=== PATIENT | male | born 2000 | race Caucasian/White ===

== ENCOUNTER 2024-07-17 13:49 | Emergency (ER) | payer MEDICAID, SELFPAY ==
--- NOTE | 2024-07-17 13:50 | XR_ITS ---
Examination: PA lateral chest 2 views TECHNIQUE: Upright PA lateral chest 2 views Exam date and time: July 17, 2024 1358 hours Comparison March 18, 2023 FINDINGS: Coughing this week, portable muscles in the lower back FINDINGS: Normal heart size Lungs are clear. The osseous structures are intact IMPRESSION: No active disease
[2024-07-17 13:57] VITALS: BP 123/81; PULSE 80; RESP 16; TEMP 36.9; O2SAT 98; BMI 26.2
[2024-07-17] MEDS: IBUPROFEN TAB 400 MG TABLET 800 MG PO (14:12)
[2024-07-17] MEDS: DIAZEPAM 5 MG TABLET 10 MG PO (14:12)
--- NOTE | 2024-07-17 15:04 | PD.EDURI ---
Upper Respiratory Inf. RME/HPI General Chief Complaint: Flu Like Symptoms Stated Complaint: COUGHING, BACK PAIN Time Seen by Provider: 07/17/24 13:50 Arrival date/time: 07/17/24 13:49 24-year-old male presents emergency department today stating he was smoking and he coughed and when he coughed he developed back pain and shortness of breath there are no other associated symptoms or aggravating factors no other modifying factors, patient denies taking medication before coming to ER today Limitations: no limitations Related Data Previous Rx's ?Medication ?Instructions ?Recorded ciprofloxacin HCl 500 mg tablet 500 mg PO BID #10 tabs 09/03/20 (Cipro) metoclopramide HCl 10 mg tablet 10 mg PO Q6H PRN nausea and 09/03/20 (Reglan) vomiting #20 tabs metronidazole 500 mg tablet 500 mg PO Q8H #15 tabs 09/03/20 (Flagyl) amoxicillin 875 mg-potassium 1 tab PO BID #14 tabs 03/18/23 clavulanate 125 mg tablet pantoprazole 40 mg tablet,delayed 40 mg PO QDAY #20 tabs 03/18/23 release (Protonix) cyclobenzaprine 10 mg tablet 10 mg PO TID PRN muscle spasm 10 07/17/24 days #30 tab-caps ibuprofen 800 mg tablet 800 mg PO TID PRN pain #30 tabs 07/17/24 Allergies Allergy/AdvReac Type Severity Reaction Status Date / Time No Known Allergies Allergy Verified 03/18/23 13:03 Review of Systems Review of Systems Systems Reviewed: All systems reviewed, normal except as documented Constitutional Constitutional: Reports system reviewed and no additional complaints, except as documented, Denies fever(s) and Denies headache(s) Eyes Eyes: Reports system reviewed and no additional complaints, except as documented and Denies blurry vision ENT Ears, Nose, Mouth, and Throat: Reports system reviewed and no additional complaints, except as documented, Denies headache(s), Denies nasal congestion and Denies nasal discharge Cardiovascular Cardiovascular: Reports system reviewed and no additional complaints, except as documented, Denies chest pain and Denies dyspnea Respiratory Respiratory: Reports system reviewed and no additional complaints, except as documented, Denies chest congestion, Reports cough and Denies dyspnea Gastrointestinal Gastrointestinal: Reports system reviewed and no additional complaints, except as documented and Denies abdominal pain Musculoskeletal Musculoskeletal: Reports system reviewed and no additional complaints, except as documented and Reports back pain Integumentary/Breasts Skin/Breast: Reports system reviewed and no additional complaints, except as documented and Denies rash Neurologic Neurologic: Reports system reviewed and no additional complaints, except as documented, Reports as per HPI and Denies headache(s) Past Medical History Past Medical History CARDIAC: Negative Cardiac Disorders or Congestive Heart Failure RESPIRATORY: Negative Chronic Obstructive Pulmonary Disease (COPD) or Asthma GENITOURINARY: Negative Renal Disease ENDOCRINE: Negative Diabetes Mellitus Type 1 or Diabetes Mellitus Type 2 HEMATOLOGIC: Negative Sickle Cell Disease Social History SMOKING STATUS: Current some day smoker ED Exam General Limitations: Present no limitations General appearance: Present alert and in no apparent distress Head Head exam: Present atraumatic Eye Eye exam: Present normal appearance, PERRL and EOMI ENT ENT exam: Present normal exam, normal oropharynx and mucous membranes moist Neck Neck exam: Present normal inspection, full ROM and trachea midline Chest Chest inspection: Present normal inspection and symmetric chest wall rise Respiratory Respiratory exam: Present normal lung sounds bilaterally Cardiovascular Cardiovascular exam: Present regular rate, normal rhythm and normal heart sounds Abdominal Exam Abdominal exam: Present soft and normal bowel sounds Extremities Exam Extremities exam: Present normal inspection and full ROM Back Exam Back exam: Present normal inspection, full ROM, tenderness and muscle spasm; Absent CVA tenderness (R) or CVA tenderness (L) Neurological Exam Neurological exam: Present alert, oriented X3 and CN II-XII intact Psychiatric Psychiatric exam: Present normal affect and normal mood Skin Skin exam: Present warm, dry, intact and normal color Course Quality Measures none Orders Category Date Time Status Bedside COVID-19 Antigen Test NOW Care 07/17/24 13:50 Completed Bedside Influenza A&B Antigen Test NOW Care 07/17/24 13:50 Completed XR chest 2V Stat Exams 07/17/24 13:50 Completed Diazepam [Valium] Med 07/17/24 14:06 Discontinued 10 mg PO X1 ONE Ibuprofen Tab [Motrin Tab] Med 07/17/24 14:06 Discontinued 800 mg PO X1 ONE Vital Signs Vital signs: Vital Signs Temperature 98.5 F 07/17/24 13:57 Pulse Rate 80 07/17/24 13:57 Respiratory Rate 16 07/17/24 13:57 Blood Pressure 123/81 07/17/24 13:57 Pulse Oximetry (%) 98 07/17/24 13:57 Oxygen Delivery Method Room Air 07/17/24 13:57 O2 saturation 98% room air within normal limits Upper Respiratory Infection MDM Narrative MDM Narrative:: 24-year-old male presents emergency department today stating he was smoking and he coughed and when he coughed he developed back pain and shortness of breath there are no other associated symptoms or aggravating factors no other modifying factors, patient denies taking medication before coming to ER today On exam patient well-appearing patient does not appear ill or toxic patient's not appear to be acute distress Chest x-ray flu and COVID obtained no acute emergent findings noted Symptoms highly consistent with muscle spasm patient was given Valium and ibuprofen here which did improve symptoms Patient discharged home in no distress to follow-up with primary care doctor in the next 24 to 48 hours and for any worsening symptoms to return to the ER immediately Patient data External records reviewed:: [facility] previous records Clinical information provided by:: patient Social determinants that could affect healthcare access:: none Patient has the following chronic illnesses:: None How is presenting disease/condition affected by chronic disease/condition?: no chronic disease Evaluation data The following diagnostics were reviewed and interpreted by me:: lab results and radiology exam(s) Lab and/or radiology exams considered but not ordered:: Labs radiology obtained Interpretation Summary: Reviewed by me Medications / Prescriptions Medications or Prescriptions considered but not ordered:: Given Medication administrations:: Medication Administration History Discontinued Medications Diazepam (Diazepam 5 Mg Tablet) 10 mg PO X1 ONE Stop: 07/17/24 14:07 Last Admin: 07/17/24 14:12 Dose: 10 mg Documented By: Ibuprofen (Ibuprofen Tab 400 Mg Tablet) 800 mg PO X1 ONE Stop: 07/17/24 14:07 Last Admin: 07/17/24 14:12 Dose: 800 mg Documented By: Given Consultations Consultation(s) initiated? (list below): No Diagnosis Upper Respiratory Differential Diagnosis: upper respiratory infection, viral infection, bronchitis and pharyngitis Most likely diagnosis given after review of the tests above:: Muscle spasm Admission Indicated Admission indicated?: not indicated Admission Request Was there a request for admission?: No Disposition Plan Disposition Plan: Discharge Discharge Attestation Discharge Attestation: The patient and all family members were given an opportunity to ask questions and understood the discharge instructions. Discharge instructions specifically effects, indications for sooner follow up or return to the emergency department, and the expected course of current diagnosis. Patient condition: Stable Discharge Plan Plan Patient Disposition: HOME (Self Care) Disposition Comment: Stable Prescriptions/Referrals Prescriptions/Med Rec: New cyclobenzaprine 10 mg tablet 10 mg PO TID PRN (Reason: muscle spasm) 10 Days Qty: 30 0RF ibuprofen 800 mg tablet 800 mg PO TID PRN (Reason: pain) Qty: 30 0RF No Action metoclopramide HCl [Reglan] 10 mg tablet 10 mg PO Q6H PRN (Reason: nausea and vomiting) Qty: 20 0RF ciprofloxacin HCl [Cipro] 500 mg tablet 500 mg PO BID Qty: 10 0RF metronidazole [Flagyl] 500 mg tablet 500 mg PO Q8H Qty: 15 0RF amoxicillin-pot clavulanate 875-125 mg tablet 1 tab PO BID Qty: 14 0RF pantoprazole [Protonix] 40 mg tablet,delayed release (DR/EC) 40 mg PO QDAY Qty: 20 0RF Problem List Clinical Impression: Back muscle spasm Patient/Caregiver Discharge Instructions Education Materials: Back Safety: Lifting Additional Instructions: Please follow up with your primary care doctor in the next 24-48hrs for any worsening symptoms return here immediately Print Language: Ug[place] Stand Alone Forms: Malinda Award Info., Work/School Release, Patient Portal Info Letter PA/BASSAM Supervising Physician PA/BASSAM Supervising Physician: Dr. Britton
== END 2024-07-17 15:33 | disposition home or self-care (01) ==
LOC: SERX 15:13
PROVIDERS: Emergency Provider Emergency Medicine
DX: M62.830 Muscle spasm of back (principal)
CPT/HCPCS: 71046; 99283; A9270